=== PATIENT | female | born 1990 | race Caucasian/White ===

== ENCOUNTER 2021-08-15 07:37 | Emergency (ER) | payer OTHER ==
[~2021-08-15] VITALS: Ht 165.1 cm; Wt 77.3 kg
[2021-08-15] MEDS ORDERED: IBUP80TA PO (07:46)
[2021-08-15] MEDS ORDERED: ACET-683 PO (07:46)
[2021-08-15] MEDS ORDERED: WELLTAB38 PO (07:46)
[2021-08-15] MEDS ORDERED: NS 1,000 ML IV ONE (08:25)
[2021-08-15] MEDS ORDERED: KETOROLAC 30 MG/ML 1ML VIAL IV ONE (08:25)
[2021-08-15 08:59] LABS: BASO % 0.8 % (0.0-1.0); EOS # 0.2 10^3/uL (0.0-0.5); EOS % 3.4 % (0.0-3.0); HEMATOCRIT 38.7 % (36.0-47.0); LYMPH # 1.8 10^3/uL (1.5-5.0); LYMPH % 35.9 % (24.0-44.0); MEAN CORPUSCULAR HEMOGLOBIN 31.2 pg (27.0-33.0); MEAN CORPUSCULAR HGB CONC 33.6 g/dl (32.0-36.5); MEAN CORPUSCULAR VOLUME 92.8 fl (80.0-96.0); MONO # 0.4 10^3/uL (0.0-0.8); MONO % 7.1 % (2.0-8.0); NEUTROPHILS # 2.6 10^3/uL (1.5-8.5); NEUTROPHILS % 52.2 % (36.0-66.0); PLATELET COUNT, AUTOMATED 299 10^3/uL (150-450); RED BLOOD COUNT 4.17 10^6/uL (4.00-5.40); WHITE BLOOD COUNT 4.9 10^3/uL (4.0-10.0)
[2021-08-15] MEDS ORDERED: METOCLOPRAMIDE INJ 10MG/2ML VIAL (J2765 PER 1) IV ONE (09:15)
[2021-08-15] MEDS ORDERED: diphenhydrAMINE 25MG CAP PO ONE (09:15)
[2021-08-15 09:30] VITALS: BP 136/86
[2021-08-15 09:37] LABS: BLOOD UREA NITROGEN 8 MG/DL (7-18); CALCIUM LEVEL 8.8 MG/DL (8.5-10.1); CARBON DIOXIDE LEVEL 28 MEQ/L (21-32); CHLORIDE LEVEL 109 MEQ/L (98-107); CREATININE FOR GFR 0.64 MG/DL (0.55-1.30); GLOMERULAR FILTRATION RATE > 60.0 (>60); GLUCOSE, FASTING 96 MG/DL (70-100); POTASSIUM SERUM 4.2 MEQ/L (3.5-5.1); SODIUM LEVEL 142 MEQ/L (136-145)
[2021-08-15 09:39] LABS: RSV AMPLIFICATION NEGATIVE (NEGATIVE)
== END 2021-08-15 10:09 | disposition home or self-care (01) ==
LOC: M ED 07:37
DX: G89.29 Other chronic pain (principal); M79.7 Fibromyalgia; F43.10 Post-traumatic stress disorder, unspecified; F17.290 Nicotine dependence, other tobacco product, uncomplicated; F12.10 Cannabis abuse, uncomplicated
CPT/HCPCS: 80048; 82550; 85025; 87631; 96361; 96374; 96375; 99284; J1885; J2765

== ENCOUNTER 2022-01-07 13:03 | Emergency (ER) | payer OTHER ==
[~2022-01-07] VITALS: Ht 165.1 cm; Wt 84.1 kg
[~2022-01-07 13:03] MED LIST: ACET-683 PO; IBUP80TA PO; WELLTAB38 PO
[2022-01-07] MEDS ORDERED: BUSP10TA (13:22)
[2022-01-07] MEDS ORDERED: MIRT-10 (13:22)
[2022-01-07] MEDS ORDERED: KETOROLAC 30 MG/ML 1ML VIAL IV ONE (14:25)
[2022-01-07] MEDS ORDERED: NS 1,000 ML IV ONE (14:25)
[2022-01-07] MEDS ORDERED: ONDANSETRON 4MG 2ML VIAL IV ONE (14:25)
[2022-01-07 15:20] LABS: BASO % 0.5 % (0.0-1.0); EOS # 0.1 10^3/uL (0.0-0.5); EOS % 2.1 % (0.0-3.0); HEMATOCRIT 39.6 % (36.0-47.0); HEMOGLOBIN 13.3 g/dl (12.0-15.5); LYMPH # 2.4 10^3/uL (1.5-5.0); LYMPH % 37.3 % (24.0-44.0); MEAN CORPUSCULAR HEMOGLOBIN 30.3 pg (27.0-33.0); MEAN CORPUSCULAR HGB CONC 33.6 g/dl (32.0-36.5); MEAN CORPUSCULAR VOLUME 90.2 fl (80.0-96.0); MONO # 0.4 10^3/uL (0.0-0.8); MONO % 6.3 % (2.0-8.0); NEUTROPHILS # 3.4 10^3/uL (1.5-8.5); NEUTROPHILS % 53.3 % (36.0-66.0); PLATELET COUNT, AUTOMATED 289 10^3/uL (150-450); RED BLOOD COUNT 4.39 10^6/uL (4.00-5.40); WHITE BLOOD COUNT 6.3 10^3/uL (4.0-10.0)
[2022-01-07 15:33] LABS: INR 0.86; PROTHROMBIN TIME 12.1 SECONDS (12.7-14.5)
[2022-01-07 15:55] LABS: ALBUMIN 4.1 GM/DL (3.2-5.2); ALT/SGPT 53 U/L (12-78); BILIRUBIN,DIRECT < 0.1 MG/DL (0.0-0.2); BILIRUBIN,TOTAL 0.2 MG/DL (0.2-1.0); TOTAL PROTEIN 7.2 GM/DL (6.4-8.2)
[2022-01-07] MEDS ORDERED: NORCO, ANEXSIA 5/325MG TABLET (HYDROcodone/ACETAMINOPHEN) PO ONE (16:15)
[2022-01-07 16:19] LABS: BACTERIA, URINE NONE SEEN; HYALINE CAST, URINE NONE SEEN /lpf (0-1); RBC, URINE 30-40 /hpf (0-3); SQUAMOUS EPITHELIAL CELL URINE NONE SEEN /hpf (SMALL AMT)
[2022-01-07 16:27] LABS: AMPHETAMINES LEVEL URINE NEGATIVE (NEGATIVE); BARBITURATES URINE NEGATIVE (NEGATIVE); BENZODIAZEPINES URINE POSITIVE (NEGATIVE); CANNABINOIDS URINE POSITIVE (NEGATIVE); COCAINE METABOLITE URINE NEGATIVE (NEGATIVE); METHADONE URINE NEGATIVE (NEGATIVE); OPIATES URINE NEGATIVE (NEGATIVE); PHENCYCLIDINE URINE NEGATIVE (NEGATIVE)
[2022-01-07] MEDS ORDERED: KETO10TAB PO (16:51)
[2022-01-07 17:01] VITALS: BP 153/96
== END 2022-01-07 17:04 | disposition home or self-care (01) ==
LOC: M ED 13:03
DX: N80.0 Endometriosis of uterus (principal); R42 Dizziness and giddiness; R11.2 Nausea with vomiting, unspecified; M79.7 Fibromyalgia; F32.A Depression, unspecified; Z90.89 Acquired absence of other organs; F17.290 Nicotine dependence, other tobacco product, uncomplicated; Z88.5 Allergy status to narcotic agent; Z79.899 Other long term (current) drug therapy
CPT/HCPCS: 76830; 76856; 80047; 80076; 80307; 81000; 81015; 84702; 85025; 85610; 85730; 93976; 96361; 96374; 96375; 99284; J1885; J2405

== ENCOUNTER 2022-01-25 08:34 | Emergency (ER) | payer OTHER ==
[~2022-01-25] VITALS: Ht 165.1 cm; Wt 79.5 kg
[~2022-01-25 08:34] MED LIST changes: +BUSP10TA; +KETO10TAB PO; +MIRT-10
[2022-01-25] MEDS ORDERED: NS 1,000 ML IV ONE (11:50)
[2022-01-25] MEDS ORDERED: KETOROLAC 30 MG/ML 1ML VIAL IV ONE (11:50)
[2022-01-25 12:10] LABS: BASO % 0.3 % (0.0-1.0); EOS # 0.1 10^3/uL (0.0-0.5); HEMATOCRIT 41.7 % (36.0-47.0); HEMOGLOBIN 13.8 g/dl (12.0-15.5); LYMPH # 2.3 10^3/uL (1.5-5.0); LYMPH % 18.6 % (24.0-44.0); MEAN CORPUSCULAR HEMOGLOBIN 29.6 pg (27.0-33.0); MEAN CORPUSCULAR HGB CONC 33.1 g/dl (32.0-36.5); MEAN CORPUSCULAR VOLUME 89.3 fl (80.0-96.0); MONO # 0.6 10^3/uL (0.0-0.8); MONO % 4.5 % (2.0-8.0); NEUTROPHILS # 9.4 10^3/uL (1.5-8.5); NEUTROPHILS % 75.3 % (36.0-66.0); PLATELET COUNT, AUTOMATED 303 10^3/uL (150-450); RED BLOOD COUNT 4.67 10^6/uL (4.00-5.40); WHITE BLOOD COUNT 12.5 10^3/uL (4.0-10.0)
[2022-01-25 12:31] LABS: ERYTHROCYTE SEDIMENTATION RATE 7 mm/hr (0-20)
[2022-01-25] MEDS ORDERED: ISOVUE-370 76% 100ML VIAL As Ordered ONE (12:31)
[2022-01-25] MEDS ORDERED: MORPHINE 4 MG/ML 1ML VIAL/SYRINGE IV ONE (13:00)
[2022-01-25 13:03] LABS: ALBUMIN 4.2 GM/DL (3.2-5.2); ALT/SGPT 85 U/L (12-78); BILIRUBIN,DIRECT 0.1 MG/DL (0.0-0.2); BILIRUBIN,TOTAL 0.4 MG/DL (0.2-1.0); BLOOD UREA NITROGEN 9 MG/DL (7-18); CALCIUM LEVEL 9.6 MG/DL (8.5-10.1); CARBON DIOXIDE LEVEL 26 MEQ/L (21-32); CHLORIDE LEVEL 108 MEQ/L (98-107); CREATININE FOR GFR 0.68 MG/DL (0.55-1.30); GLOMERULAR FILTRATION RATE > 60.0 (>60); GLUCOSE, FASTING 102 MG/DL (70-100); LIPASE 90 U/L (73-393); POTASSIUM SERUM 4.2 MEQ/L (3.5-5.1); SODIUM LEVEL 139 MEQ/L (136-145); TOTAL PROTEIN 7.2 GM/DL (6.4-8.2)
[2022-01-25 13:08] LABS: AMPHETAMINES LEVEL URINE NEGATIVE (NEGATIVE); BARBITURATES URINE NEGATIVE (NEGATIVE); BENZODIAZEPINES URINE NEGATIVE (NEGATIVE); CANNABINOIDS URINE POSITIVE (NEGATIVE); COCAINE METABOLITE URINE NEGATIVE (NEGATIVE); METHADONE URINE NEGATIVE (NEGATIVE); OPIATES URINE NEGATIVE (NEGATIVE); PHENCYCLIDINE URINE NEGATIVE (NEGATIVE)
[2022-01-25 14:41] VITALS: BP 142/84
[2022-01-25 17:32] LABS: GC DNA AMPLIFICATION NEGATIVE (NEGATIVE)
== END 2022-01-25 14:46 | disposition home or self-care (01) ==
LOC: M ED 08:34
DX: D25.9 Leiomyoma of uterus, unspecified (principal); N80.9 Endometriosis, unspecified; M79.7 Fibromyalgia; Z79.899 Other long term (current) drug therapy; Z88.8 Allergy status to other drugs, medicaments and biological substances
CPT/HCPCS: 74177; 76830; 76856; 80047; 80048; 80076; 80307; 81000; 81015; 83690; 84702; 85025; 85652; 86140; 87661; 87810; 87850; 93041; 93976; 96361; 96374; 96375; 99284; J1885; J2270; Q9967

== ENCOUNTER 2022-02-19 13:23 | Emergency (ER) | payer OTHER ==
[~2022-02-19] VITALS: Ht 165.1 cm; Wt 81.6 kg
[2022-02-19] MEDS ORDERED: OXYC1TAB23 (13:30)
[2022-02-19] MEDS ORDERED: DICY20TA20 (13:30)
[2022-02-19] MEDS ORDERED: FLUO20CA22 (13:30)
[2022-02-19] MEDS ORDERED: PROM25TA12 (13:30)
[2022-02-19 14:09] LABS: BASO # 0.1 10^3/uL (0.0-0.2); BASO % 0.7 % (0.0-1.0); EOS % 0.5 % (0.0-3.0); LYMPH # 2.6 10^3/uL (1.5-5.0); LYMPH % 35.2 % (24.0-44.0); MEAN CORPUSCULAR HGB CONC 34.1 g/dl (32.0-36.5); MONO # 0.6 10^3/uL (0.0-0.8); MONO % 7.8 % (2.0-8.0); NEUTROPHILS # 4.1 10^3/uL (1.5-8.5); NEUTROPHILS % 55.7 % (36.0-66.0); PLATELET COUNT, AUTOMATED 278 10^3/uL (150-450); RED BLOOD COUNT 4.66 10^6/uL (4.00-5.40); WHITE BLOOD COUNT 7.4 10^3/uL (4.0-10.0)
[2022-02-19 15:08] LABS: HCG, SERUM QUALITATIVE NEGATIVE (NEGATIVE)
[2022-02-19 15:18] LABS: ALBUMIN 4.6 GM/DL (3.2-5.2); ALT/SGPT 686 U/L (12-78); BILIRUBIN,DIRECT 0.2 MG/DL (0.0-0.2); BILIRUBIN,TOTAL 0.5 MG/DL (0.2-1.0); BLOOD UREA NITROGEN 5 MG/DL (7-18); CALCIUM LEVEL 9.5 MG/DL (8.5-10.1); CARBON DIOXIDE LEVEL 25 MEQ/L (21-32); CHLORIDE LEVEL 108 MEQ/L (98-107); CREATININE FOR GFR 0.78 MG/DL (0.55-1.30); GLOMERULAR FILTRATION RATE > 60.0 (>60); GLUCOSE, FASTING 115 MG/DL (70-100); LIPASE 66 U/L (73-393); POTASSIUM SERUM 4.1 MEQ/L (3.5-5.1); SODIUM LEVEL 138 MEQ/L (136-145); TOTAL PROTEIN 7.8 GM/DL (6.4-8.2)
[2022-02-19] MEDS ORDERED: MORPHINE 4 MG/ML 1ML VIAL/SYRINGE IV ONE (17:35)
[2022-02-19] MEDS ORDERED: NS 1,000 ML IV ONE (19:15)
[2022-02-19] MEDS ORDERED: CAPSAICIN 0.025% CR 60 GM TOP ONE (19:30)
[2022-02-19] MEDS ORDERED: KETOROLAC 30 MG/ML 1ML VIAL IV ONE (19:30)
[2022-02-19] MEDS ORDERED: HALOPERIDOL 5MG/ML VIAL (J1630 PER 1) IV ONE (19:50)
[2022-02-19 19:59] LABS: HEPATITIS B CORE ANTIBODY IGM NEGATIVE (NEGATIVE); HEPATITIS B SURFACE ANTIGEN NEGATIVE (NEGATIVE); HEPATITIS C VIRUS ABY INDEX < 0.0 INDEX (<0.8)
[2022-02-19 20:02] VITALS: BP 142/86
== END 2022-02-19 20:26 | disposition left against medical advice (07) ==
LOC: M ED 13:23
DX: A08.11 Acute gastroenteropathy due to Norwalk agent (principal); Z53.9 Procedure and treatment not carried out, unspecified reason; M79.7 Fibromyalgia; F32.9 Major depressive disorder, single episode, unspecified; N80.9 Endometriosis, unspecified; Z88.5 Allergy status to narcotic agent
CPT/HCPCS: 76705; 80048; 80076; 81002; 83690; 84703; 85025; 86705; 86709; 86803; 87340; 87507; 96361; 96374; 96375; 99283; J1630; J1885; J2270

== ENCOUNTER 2022-03-23 08:27 | Day surgery (SDC) | payer OTHER ==
[~2022-03-23] VITALS: Ht 165.1 cm; Wt 77.2 kg
[~2022-03-23 08:27] MED LIST changes: +DICY20TA20; +FLUO20CA22 PO; +KETOROLAC 60MG 2ML VIAL As Ordered ONE; +LIDOCAINE 2% 100MG/5ML SDV (FOR ANES.) As Ordered ONE; +MIDAZOLAM INJ 2MG/2ML VIAL (J2250 PER 1MG) As Ordered ONE; +ONDANSETRON 4MG 2ML VIAL As Ordered ONE; +OXYC-517 PO; +OXYC1TAB23; +PROM25TA12 PO; +ROCURONIUM BROMIDE 50 MG/5 ML VIAL As Ordered ONE; +SUGAMMADEX SODIUM 500 MG/5 ML VIAL (BRIDION) As Ordered ONE; +VENTAER INH; +dexameTHASONE 4 MG/ML 1ML VIAL (J1100 PER 1MG) As Ordered ONE; +fentaNYL 100 MCG/2 ML INJECTION As Ordered ONE; +propofoL 200 MG/20 ML VIAL As Ordered ONE
[2022-03-23 09:08] LABS: HEMATOCRIT 41.3 % (36.0-47.0); HEMOGLOBIN 13.7 g/dl (12.0-15.5); MEAN CORPUSCULAR HGB CONC 33.2 g/dl (32.0-36.5); MEAN CORPUSCULAR VOLUME 90.4 fl (80.0-96.0); PLATELET COUNT, AUTOMATED 216 10^3/uL (150-450); RED BLOOD COUNT 4.57 10^6/uL (4.00-5.40); WHITE BLOOD COUNT 5.8 10^3/uL (4.0-10.0)
[2022-03-23] MEDS ORDERED: METOCLOPRAMIDE INJ 10MG/2ML VIAL (J2765 PER 1) As Ordered ONE (09:10)
[2022-03-23] MEDS ORDERED: LR 1,000 ML IV SCH ×2 (09:20→11:30)
[2022-03-23] MEDS ORDERED: SCOPOLAMINE 1MG TRANSDERMAL PATCH TOP ONE (09:30)
[2022-03-23 09:32] LABS: HCG, SERUM QUALITATIVE NEGATIVE (NEGATIVE)
[2022-03-23 09:47] LABS: ALBUMIN 4.3 GM/DL (3.2-5.2); ALT/SGPT 399 U/L (12-78); BILIRUBIN,TOTAL 0.8 MG/DL (0.2-1.0); BLOOD UREA NITROGEN 5 MG/DL (7-18); CALCIUM LEVEL 9.5 MG/DL (8.5-10.1); CARBON DIOXIDE LEVEL 25 MEQ/L (21-32); CHLORIDE LEVEL 108 MEQ/L (98-107); CREATININE FOR GFR 0.66 MG/DL (0.55-1.30); GLOMERULAR FILTRATION RATE > 60.0 (>60); GLUCOSE, FASTING 101 MG/DL (70-100); POTASSIUM SERUM 4.2 MEQ/L (3.5-5.1); SODIUM LEVEL 140 MEQ/L (136-145); TOTAL PROTEIN 7.2 GM/DL (6.4-8.2)
[2022-03-23] MEDS ORDERED: MORPHINE 2 MG/ML 1ML VIAL IV ONE (09:50)
[2022-03-23] MEDS ORDERED: BUPIVACAINE HCL 0.25% 30ML VIAL As Ordered ONE (09:53)
[2022-03-23] MEDS ORDERED: propofoL 200 MG/20 ML VIAL As Ordered ONE (10:37)
[2022-03-23] MEDS ORDERED: HYDROmorphone HCL 2MG/ML 1ML VIAL As Ordered ONE (11:00)
[2022-03-23] MEDS ORDERED: ONDANSETRON 4MG 2ML VIAL IV PRN (11:30)
[2022-03-23] MEDS: fentaNYL 100 MCG/2 ML INJECTION IV PRN ×4 (11:44→11:59)
[2022-03-23] MEDS: oxyCODONE 5MG TAB PO PRN ×2 (11:44→12:12)
[2022-03-23] MEDS: MORPHINE 2 MG/ML 1ML VIAL IV PRN ×2 (12:07→12:12)
[2022-03-23 13:08] VITALS: BP 121/76
[2022-03-23] MEDS ORDERED: KETOROLAC 30 MG/ML 1ML VIAL IV ONE (13:45)
== END 2022-03-23 13:12 | disposition home or self-care (01) ==
LOC: M SDC 08:27
PROVIDERS: ATTEND Obstetrics & Gynecology
DX: R10.2 Pelvic and perineal pain (principal); N80.9 Endometriosis, unspecified; I10 Essential (primary) hypertension; F43.10 Post-traumatic stress disorder, unspecified; J45.909 Unspecified asthma, uncomplicated; Z79.899 Other long term (current) drug therapy; G43.909 Migraine, unspecified, not intractable, without status migrainosus; F32.A Depression, unspecified; Z91.013 Allergy to seafood; Z88.5 Allergy status to narcotic agent; Z79.51 Long term (current) use of inhaled steroids
CPT/HCPCS: 36415; 49320; 57410; 80053; 84703; 85027; 86850; 86900; 86901; 87624; G0123; J1100; J1170; J1885; J2250; J2270; J2405; J2765; J3010

== ENCOUNTER → 2022-04-26 | Outpatient (CLI) | payer OTHER ==
[~2022-04-26] MED LIST changes: -KETOROLAC 60MG 2ML VIAL As Ordered ONE; -LIDOCAINE 2% 100MG/5ML SDV (FOR ANES.) As Ordered ONE; -MIDAZOLAM INJ 2MG/2ML VIAL (J2250 PER 1MG) As Ordered ONE; -ONDANSETRON 4MG 2ML VIAL As Ordered ONE; -ROCURONIUM BROMIDE 50 MG/5 ML VIAL As Ordered ONE; -SUGAMMADEX SODIUM 500 MG/5 ML VIAL (BRIDION) As Ordered ONE; -dexameTHASONE 4 MG/ML 1ML VIAL (J1100 PER 1MG) As Ordered ONE; -fentaNYL 100 MCG/2 ML INJECTION As Ordered ONE; -propofoL 200 MG/20 ML VIAL As Ordered ONE
== END ==
LOC: M RAD 15:38
PROVIDERS: ATTEND Physician Assistant
DX: H92.11 Otorrhea, right ear (principal); J32.0 Chronic maxillary sinusitis

== ENCOUNTER 2022-05-22 11:08 | Emergency (ER) | payer OTHER ==
[~2022-05-22] VITALS: Ht 165.1 cm; Wt 70.9 kg
[2022-05-22 11:54] LABS: BASO % 0.5 % (0.0-1.0); EOS # 0.1 10^3/uL (0.0-0.5); EOS % 0.8 % (0.0-3.0); HEMATOCRIT 41.5 % (36.0-47.0); HEMOGLOBIN 13.8 g/dl (12.0-15.5); LYMPH # 1.6 10^3/uL (1.5-5.0); LYMPH % 26.2 % (24.0-44.0); MEAN CORPUSCULAR HEMOGLOBIN 29.7 pg (27.0-33.0); MEAN CORPUSCULAR HGB CONC 33.3 g/dl (32.0-36.5); MEAN CORPUSCULAR VOLUME 89.4 fl (80.0-96.0); MONO # 0.3 10^3/uL (0.0-0.8); MONO % 5.6 % (2.0-8.0); NEUTROPHILS % 66.7 % (36.0-66.0); PLATELET COUNT, AUTOMATED 261 10^3/uL (150-450); RED BLOOD COUNT 4.64 10^6/uL (4.00-5.40); WHITE BLOOD COUNT 6.1 10^3/uL (4.0-10.0)
[2022-05-22 12:23] LABS: LIPASE 25 U/L (12-53)
[2022-05-22 12:25] LABS: BILIRUBIN,DIRECT 0.2 MG/DL (<0.4)
[2022-05-22 12:26] LABS: ALBUMIN 4.7 G/DL (3.2-5.2); ALKALINE PHOSPHATASE 50 U/L (46-116); ALT/SGPT 81 U/L (7.0-40); AST/SGOT 33 U/L (<34); BILIRUBIN,TOTAL 0.5 MG/DL (0.3-1.2); BLOOD UREA NITROGEN 6 MG/DL (9-23); CARBON DIOXIDE LEVEL 25 MMOL/L (20-31); CHLORIDE LEVEL 106 MMOL/L (98-107); CREATININE FOR GFR 0.55 MG/DL (0.55-1.30); GLOMERULAR FILTRATION RATE > 60.0 (>60); GLUCOSE, FASTING 91 MG/DL (60-100); POTASSIUM SERUM 4.1 MMOL/L (3.5-5.1); SODIUM LEVEL 140 MMOL/L (136-145); TOTAL PROTEIN 7.5 G/DL (5.7-8.2)
[2022-05-22 12:34] LABS: HCG, SERUM QUALITATIVE NEGATIVE (NEGATIVE)
[2022-05-22] MEDS ORDERED: ONDANSETRON 4MG 2ML VIAL IV ONE (14:10)
[2022-05-22] MEDS: MORPHINE 4 MG/ML 1ML VIAL IV PRN ×2 (14:23→15:41)
[2022-05-22 15:16] LABS: RSV AMPLIFICATION NEGATIVE (NEGATIVE)
[2022-05-22] MEDS ORDERED: DICY20TA20 PO (15:27)
[2022-05-22] MEDS ORDERED: HOME MED LIST COMPLETE! XX SCH (15:30)
[2022-05-22] MEDS ORDERED: MORPHINE 2 MG/ML 1ML VIAL IV ONE (17:20)
[2022-05-22] MEDS ORDERED: MORPHINE 4 MG/ML 1ML VIAL IV ONE (17:20)
[2022-05-22 17:30] VITALS: BP 133/88
== END 2022-05-22 17:54 | disposition home or self-care (01) ==
LOC: M ED 11:08 → CANBEDREQ 17:13 → M ED 17:54
DX: R94.5 Abnormal results of liver function studies (principal); R19.7 Diarrhea, unspecified; R10.9 Unspecified abdominal pain; I10 Essential (primary) hypertension; M79.7 Fibromyalgia; N80.9 Endometriosis, unspecified; J45.909 Unspecified asthma, uncomplicated; F32.9 Major depressive disorder, single episode, unspecified; Z79.899 Other long term (current) drug therapy; Z88.6 Allergy status to analgesic agent; Z88.5 Allergy status to narcotic agent; Z91.013 Allergy to seafood
CPT/HCPCS: 80048; 80076; 81000; 81015; 83690; 84703; 85025; 87086; 87631; 96374; 96375; 96376; 99284; J2405

== ENCOUNTER 2022-05-25 08:22 | Inpatient (IN) | payer OTHER ==
[~2022-05-25] VITALS: Ht 165.1 cm; Wt 73.0 kg
[~2022-05-25 08:22] MED LIST changes: +DICY20TA20 PO
[2022-05-25] MEDS ORDERED: METOCLOPRAMIDE INJ 10MG/2ML VIAL IV ONE (12:50)
[2022-05-25] MEDS ORDERED: NS 1,000 ML IV ONE (12:50)
[2022-05-25] MEDS ORDERED: MORPHINE 4 MG/ML 1ML VIAL IV ONE ×2 (12:50→22:00)
[2022-05-25 13:46] LABS: BASO % 0.7 % (0.0-1.0); EOS # 0.1 10^3/uL (0.0-0.5); EOS % 1.1 % (0.0-3.0); HEMATOCRIT 41.1 % (36.0-47.0); HEMOGLOBIN 13.7 g/dl (12.0-15.5); LYMPH # 2.3 10^3/uL (1.5-5.0); LYMPH % 40.5 % (24.0-44.0); MEAN CORPUSCULAR HGB CONC 33.3 g/dl (32.0-36.5); MEAN CORPUSCULAR VOLUME 90.1 fl (80.0-96.0); MONO # 0.3 10^3/uL (0.0-0.8); MONO % 5.7 % (2.0-8.0); NEUTROPHILS # 2.9 10^3/uL (1.5-8.5); NEUTROPHILS % 51.8 % (36.0-66.0); PLATELET COUNT, AUTOMATED 222 10^3/uL (150-450); RED BLOOD COUNT 4.56 10^6/uL (4.00-5.40); WHITE BLOOD COUNT 5.6 10^3/uL (4.0-10.0)
[2022-05-25 14:12] LABS: ERYTHROCYTE SEDIMENTATION RATE 5 mm/hr (0-20)
[2022-05-25 14:20] LABS: ALBUMIN 4.4 G/DL (3.2-5.2); ALKALINE PHOSPHATASE 45 U/L (46-116); ALT/SGPT 38 U/L (7.0-40); AST/SGOT 18 U/L (<34); BILIRUBIN,TOTAL 0.3 MG/DL (0.3-1.2); BLOOD UREA NITROGEN 6 MG/DL (9-23); CALCIUM LEVEL 9.8 MG/DL (8.5-10.1); CARBON DIOXIDE LEVEL 26 MMOL/L (20-31); CHLORIDE LEVEL 106 MMOL/L (98-107); CREATININE FOR GFR 0.66 MG/DL (0.55-1.30); GLOMERULAR FILTRATION RATE > 60.0 (>60); GLUCOSE, FASTING 79 MG/DL (60-100); POTASSIUM SERUM 4.3 MMOL/L (3.5-5.1); SODIUM LEVEL 140 MMOL/L (136-145)
[2022-05-25] MEDS ORDERED: KETOROLAC 30 MG/ML 1ML VIAL IV ONE (14:25)
[2022-05-25 14:47] LABS: C REACTIVE PROTEIN QUANTITATIV < 0.40 MG/DL (<1.0)
[2022-05-25] MEDS ORDERED: ISOVUE-370 76% 100ML VIAL As Ordered ONE (15:05)
[2022-05-25] MEDS ORDERED: GI COCKTAIL 50ML BTL(HYOSCYAMINE/MAALOX/LIDOCAINE VISCOUS)(1:3:1) PO ONE (15:10)
[2022-05-25] MEDS: GASTROGRAFIN SOLUTION 30ML PO SCH ×2 (15:25→15:50)
[2022-05-25 15:53] LABS: LIPASE 26 U/L (12-53)
[2022-05-25] MEDS ORDERED: DICYCLOMINE 10 MG CAP PO ONE (16:55)
[2022-05-25] MEDS ORDERED: ACETAMINOPHEN 1000MG 100ML IV BAG IV ONE (17:15)
[2022-05-25] MEDS ORDERED: oxyCODONE 5MG TAB PO ONE (18:15)
[2022-05-25] MEDS ORDERED: ONDANSETRON 4MG 2ML VIAL IV PRN (19:35)
[2022-05-25] MEDS ORDERED: MELATAB3 PO (19:50)
[2022-05-25] MEDS ORDERED: HOME MED LIST COMPLETE! XX SCH (19:50)
[2022-05-25 19:57] LABS: RSV AMPLIFICATION NEGATIVE (NEGATIVE)
[2022-05-25] MEDS: NS 1,000 ML IV SCH (19:58)
[2022-05-25] MEDS ORDERED: RAMELTEON 8 MG TAB (ROZEREM) PO PRN (23:45)
[2022-05-25] MEDS ORDERED: ALBUTEROL 90 MCG/ACT 8GM HFA INHALER INH PRN (23:45)
[2022-05-26 02:00] VITALS: BP 119/70
[2022-05-26] MEDS: oxyCODONE 5MG TAB PO PRN ×3 (02:37→19:44)
[2022-05-26] MEDS: NS 1,000 ML IV SCH ×3 (05:23→22:36)
[2022-05-26 06:00] VITALS: BP 124/70
[2022-05-26] MEDS: DICYCLOMINE 10 MG CAP PO PRN ×3 (07:45→22:52)
[2022-05-26 08:01] LABS: HEMATOCRIT 37.9 % (36.0-47.0); HEMOGLOBIN 12.4 g/dl (12.0-15.5); MEAN CORPUSCULAR HEMOGLOBIN 29.6 pg (27.0-33.0); MEAN CORPUSCULAR HGB CONC 32.7 g/dl (32.0-36.5); MEAN CORPUSCULAR VOLUME 90.5 fl (80.0-96.0); PLATELET COUNT, AUTOMATED 205 10^3/uL (150-450); RED BLOOD COUNT 4.19 10^6/uL (4.00-5.40)
[2022-05-26 08:34] LABS: MAGNESIUM LEVEL 1.8 MG/DL (1.8-2.4)
[2022-05-26 08:37] LABS: ALBUMIN 3.6 G/DL (3.2-5.2); ALKALINE PHOSPHATASE 39 U/L (46-116); ALT/SGPT 21 U/L (7.0-40); AST/SGOT 16 U/L (<34); BILIRUBIN,TOTAL 0.4 MG/DL (0.3-1.2); BLOOD UREA NITROGEN < 5 MG/DL (9-23); CALCIUM LEVEL 8.3 MG/DL (8.5-10.1); CARBON DIOXIDE LEVEL 25 MMOL/L (20-31); CHLORIDE LEVEL 107 MMOL/L (98-107); CREATININE FOR GFR 0.58 MG/DL (0.55-1.30); GLOMERULAR FILTRATION RATE > 60.0 (>60); GLUCOSE, FASTING 86 MG/DL (60-100); POTASSIUM SERUM 4.1 MMOL/L (3.5-5.1); SODIUM LEVEL 139 MMOL/L (136-145); TOTAL PROTEIN 5.8 G/DL (5.7-8.2)
[2022-05-26] MEDS: ENOXAPARIN 40MG/0.4ML SYRINGE (J1650 PER 10MG) SC SCH (09:00)
[2022-05-26] MEDS ORDERED: PANTOPRAZOLE 40MG TAB (PROTONIX) PO SCH (09:00)
[2022-05-26] MEDS: FLUoxetine 20MG CAP PO SCH (09:00)
[2022-05-26] MEDS ORDERED: MORPHINE 4 MG/ML 1ML VIAL IV ONE (09:15)
[2022-05-26] MEDS: SUCRALFATE 1 GM TAB PO SCH ×4 (10:05→21:00)
[2022-05-26] MEDS: PANTOPRAZOLE 40MG VIAL IV SCH ×2 (10:59→21:14)
[2022-05-26] MEDS: MORPHINE 4 MG/ML 1ML VIAL IV PRN ×2 (16:08→20:24)
[2022-05-26] MEDS ORDERED: MIRALAX *UNIT DOSE* 17GM PACKET PO ONE (16:25)
[2022-05-26] MEDS ORDERED: BISACODYL 5MG TAB PO ONE (16:25)
[2022-05-26] MEDS ORDERED: MOM 30ML SUSPENSION UDC PO ONE (16:25)
[2022-05-26] MEDS: DOCUSATE SODIUM 100MG CAPSULE PO SCH ×2 (17:25→21:00)
[2022-05-26] MEDS: SENNA 8.6 MG TAB (SENOKOT) PO SCH ×2 (17:25→21:00)
[2022-05-26 22:23] VITALS: BP 124/71
[2022-05-27] MEDS: MORPHINE 4 MG/ML 1ML VIAL IV PRN ×4 (00:26→16:10)
[2022-05-27] MEDS: oxyCODONE 5MG TAB PO PRN ×3 (02:00→15:26)
[2022-05-27] MEDS ORDERED: MORPHINE 4 MG/ML 1ML VIAL IV ONE ×2 (04:00→09:50)
[2022-05-27 05:44] VITALS: BP 108/52
[2022-05-27] MEDS: PANTOPRAZOLE 40MG VIAL IV SCH (07:57)
[2022-05-27] MEDS: DOCUSATE SODIUM 100MG CAPSULE PO SCH (07:58)
[2022-05-27] MEDS: FLUoxetine 20MG CAP PO SCH (07:58)
[2022-05-27] MEDS: SUCRALFATE 1 GM TAB PO SCH ×2 (07:58→13:00)
[2022-05-27] MEDS: ENOXAPARIN 40MG/0.4ML SYRINGE (J1650 PER 10MG) SC SCH (07:59)
[2022-05-27] MEDS: SENNA 8.6 MG TAB (SENOKOT) PO SCH (07:59)
[2022-05-27] MEDS ORDERED: MOM 30ML SUSPENSION UDC PO ONE (08:00)
[2022-05-27] MEDS ORDERED: BISACODYL 5MG TAB PO ONE (08:00)
[2022-05-27] MEDS ORDERED: FLEET ENEMA PR ONE (11:30)
[2022-05-27] MEDS ORDERED: INFLUENZA QUADRIVALENT PF VACCINE 0.5ML SYRINGE IM.IMMUN ONE (12:00)
[2022-05-27] MEDS: NS 1,000 ML IV SCH (12:05)
[2022-05-27] MEDS ORDERED: LIDOCAINE 2% 100MG/5ML SDV (FOR ANES.) As Ordered ONE (14:16)
[2022-05-27] MEDS ORDERED: propofoL 200 MG/20 ML VIAL As Ordered ONE (14:16)
[2022-05-27] MEDS ORDERED: KETAMINE HCL 200MG/20ML VIAL As Ordered ONE (15:00)
[2022-05-27 15:15] VITALS: BP 113/69
[2022-05-27] MEDS ORDERED: MORPHINE 2 MG/ML 1ML VIAL IV ONE (16:35)
[2022-05-27] MEDS ORDERED: PANT40TA29 PO (16:51)
[2022-05-27] MEDS ORDERED: ONDA-83 PO (16:51)
[2022-05-27] MEDS ORDERED: CARA1TAB6 PO (16:51)
== END 2022-05-27 17:30 | disposition home or self-care (01) | DRG 392 ==
LOC: M ED 08:22 → M ED INP 17:34 → M MSPAV 05-26 22:25
PROVIDERS: ADMIT Internal Medicine; ATTEND Internal Medicine
PROC: 0DB98ZX Excision of Duodenum, Via Natural or Artificial Opening Endoscopic, Diagnostic (ICD-10-PCS; 2022-05-27)
PROC: 0DBH8ZX Excision of Cecum, Via Natural or Artificial Opening Endoscopic, Diagnostic (ICD-10-PCS; 2022-05-27)
PROC: 0DBK8ZX Excision of Ascending Colon, Via Natural or Artificial Opening Endoscopic, Diagnostic (ICD-10-PCS; 2022-05-27)
PROC: 0DBL8ZX Excision of Transverse Colon, Via Natural or Artificial Opening Endoscopic, Diagnostic (ICD-10-PCS; 2022-05-27)
PROC: 0DBN8ZX Excision of Sigmoid Colon, Via Natural or Artificial Opening Endoscopic, Diagnostic (ICD-10-PCS; 2022-05-27)
PROC: 0DBM8ZX Excision of Descending Colon, Via Natural or Artificial Opening Endoscopic, Diagnostic (ICD-10-PCS; 2022-05-27)
PROC: 0DB78ZX Excision of Stomach, Pylorus, Via Natural or Artificial Opening Endoscopic, Diagnostic (ICD-10-PCS; principal; 2022-05-27 14:40)
DX: K29.60 Other gastritis without bleeding (principal); I77.4 Celiac artery compression syndrome; I10 Essential (primary) hypertension; G43.909 Migraine, unspecified, not intractable, without status migrainosus; F43.10 Post-traumatic stress disorder, unspecified; F32.A Depression, unspecified; J45.909 Unspecified asthma, uncomplicated; N80.9 Endometriosis, unspecified; Z90.49 Acquired absence of other specified parts of digestive tract; Z20.822 Contact with and (suspected) exposure to COVID-19; Z79.899 Other long term (current) drug therapy; Z88.6 Allergy status to analgesic agent; Z88.8 Allergy status to other drugs, medicaments and biological substances; Z91.013 Allergy to seafood

== ENCOUNTER 2022-08-06 19:25 | Emergency (ER) | payer OTHER ==
[~2022-08-06] VITALS: Ht 165.1 cm; Wt 68.3 kg
[~2022-08-06 19:25] MED LIST changes: +CARA1TAB6 PO; +MELATAB3 PO; +ONDA-83 PO; +PANT40TA29 PO
[2022-08-06] MEDS ORDERED: ONDANSETRON 4MG 2ML VIAL IV ONE (20:20)
[2022-08-06] MEDS ORDERED: MORPHINE 4 MG/ML 1ML VIAL IV ONE (20:20)
[2022-08-06 20:47] LABS: BASO % 0.4 % (0.0-1.0); EOS # 0.1 10^3/uL (0.0-0.5); EOS % 1.7 % (0.0-3.0); HEMATOCRIT 36.9 % (36.0-47.0); HEMOGLOBIN 12.3 g/dl (12.0-15.5); LYMPH # 2.4 10^3/uL (1.5-5.0); LYMPH % 29.9 % (24.0-44.0); MEAN CORPUSCULAR HEMOGLOBIN 29.9 pg (27.0-33.0); MEAN CORPUSCULAR HGB CONC 33.3 g/dl (32.0-36.5); MEAN CORPUSCULAR VOLUME 89.6 fl (80.0-96.0); MONO # 0.7 10^3/uL (0.0-0.8); NEUTROPHILS # 4.7 10^3/uL (1.5-8.5); NEUTROPHILS % 58.8 % (36.0-66.0); PLATELET COUNT, AUTOMATED 168 10^3/uL (150-450); RED BLOOD COUNT 4.12 10^6/uL (4.00-5.40)
[2022-08-06 21:27] LABS: LIPASE 22 U/L (12-53)
[2022-08-06 21:29] LABS: ALBUMIN 3.4 G/DL (3.2-5.2); ALKALINE PHOSPHATASE 54 U/L (46-116); ALT/SGPT 15 U/L (7.0-40); AST/SGOT < 8 U/L (<34); BILIRUBIN,DIRECT 0.1 MG/DL (<0.4); BILIRUBIN,TOTAL 0.3 MG/DL (0.3-1.2); TOTAL PROTEIN 6.1 G/DL (5.7-8.2)
[2022-08-06] MEDS: MORPHINE 4 MG/ML 1ML VIAL IV PRN ×2 (21:40→22:40)
[2022-08-06 23:11] VITALS: BP 100/54
== END 2022-08-06 23:55 | disposition home or self-care (01) ==
LOC: M ED 19:25
DX: R10.9 Unspecified abdominal pain (principal); I10 Essential (primary) hypertension; N80.9 Endometriosis, unspecified; M79.7 Fibromyalgia; J45.909 Unspecified asthma, uncomplicated; Z88.6 Allergy status to analgesic agent; F41.9 Anxiety disorder, unspecified; F32.A Depression, unspecified; Z79.891 Long term (current) use of opiate analgesic; Z79.899 Other long term (current) drug therapy
CPT/HCPCS: 80047; 80076; 81001; 83690; 84702; 85025; 96374; 96375; 96376; 99284; J2270; J2405

== ENCOUNTER 2022-08-09 11:18 | Emergency (ER) | payer OTHER ==
[~2022-08-09] VITALS: Ht 165.1 cm; Wt 66.9 kg
[2022-08-09 11:19] VITALS: BP 133/79
[2022-08-09 15:18] LABS: BASO % 0.6 % (0.0-1.0); EOS # 0.1 10^3/uL (0.0-0.5); EOS % 1.3 % (0.0-3.0); HEMATOCRIT 40.7 % (36.0-47.0); HEMOGLOBIN 13.3 g/dl (12.0-15.5); LYMPH # 1.6 10^3/uL (1.5-5.0); LYMPH % 29.8 % (24.0-44.0); MEAN CORPUSCULAR HEMOGLOBIN 29.4 pg (27.0-33.0); MEAN CORPUSCULAR HGB CONC 32.7 g/dl (32.0-36.5); MONO # 0.5 10^3/uL (0.0-0.8); MONO % 8.8 % (2.0-8.0); NEUTROPHILS # 3.1 10^3/uL (1.5-8.5); NEUTROPHILS % 59.1 % (36.0-66.0); PLATELET COUNT, AUTOMATED 161 10^3/uL (150-450); RED BLOOD COUNT 4.52 10^6/uL (4.00-5.40); WHITE BLOOD COUNT 5.2 10^3/uL (4.0-10.0)
[2022-08-09 15:28] LABS: URINE PREG TEST NEGATIVE (NEGATIVE)
[2022-08-09] MEDS ORDERED: HYDROMORPHONE HCL 0.5 MG/ 0.5 ML SYRINGE IV ONE ×2 (15:45→17:00)
[2022-08-09] MEDS ORDERED: ONDANSETRON 4MG 2ML VIAL IV ONE (15:45)
[2022-08-09 16:40] LABS: LIPASE 17 U/L (12-53)
[2022-08-09 16:41] LABS: AMYLASE 35 U/L (30-118)
[2022-08-09 16:50] LABS: ALBUMIN 3.5 G/DL (3.2-5.2); ALKALINE PHOSPHATASE 59 U/L (46-116); ALT/SGPT 11 U/L (7.0-40); AST/SGOT 11 U/L (<34); BILIRUBIN,DIRECT 0.1 MG/DL (<0.4); BILIRUBIN,TOTAL 0.4 MG/DL (0.3-1.2); BLOOD UREA NITROGEN 7 MG/DL (9-23); CALCIUM LEVEL 8.7 MG/DL (8.5-10.1); CARBON DIOXIDE LEVEL 25 MMOL/L (20-31); CHLORIDE LEVEL 106 MMOL/L (98-107); CREATININE FOR GFR 0.56 MG/DL (0.55-1.30); GLOMERULAR FILTRATION RATE > 60.0 (>60); GLUCOSE, FASTING 79 MG/DL (60-100); SODIUM LEVEL 138 MMOL/L (136-145); TOTAL PROTEIN 6.5 G/DL (5.7-8.2)
== END 2022-08-09 17:14 | disposition home or self-care (01) ==
LOC: M ED 11:18
DX: I77.4 Celiac artery compression syndrome (principal); R52 Pain, unspecified; Z79.899 Other long term (current) drug therapy; Z88.6 Allergy status to analgesic agent; Z88.5 Allergy status to narcotic agent; Z91.013 Allergy to seafood
CPT/HCPCS: 80048; 80076; 81001; 82150; 83605; 83690; 84703; 85025; 96374; 96375; 96376; 99282; J1170; J2405

== ENCOUNTER → 2022-10-16 | Outpatient (REF) | payer OTHER | LOC: M LAB REF 17:47 | PROVIDERS: ATTEND Physician Assistant Medical | DX: R51.9 Headache, unspecified (principal) ==

== ENCOUNTER 2023-06-29 17:30 | Emergency (ER) | payer OTHER ==
[~2023-06-29] VITALS: Ht 165.1 cm; Wt 69.7 kg
[2023-06-29] MEDS ORDERED: GABA-282 (17:38)
[2023-06-29] MEDS ORDERED: TIZA2TA (17:38)
[2023-06-29] MEDS ORDERED: AMOX875T (17:38)
[2023-06-29] MEDS ORDERED: ALPR0.5T3 (17:38)
[2023-06-29] MEDS: KETOROLAC 30 MG/ML 1ML VIAL IV ONE (19:58)
[2023-06-29 20:51] LABS: BASO % 0.5 % (0.0-1.0); EOS # 0.4 10^3/uL (0.0-0.5); EOS % 6.6 % (0.0-3.0); HEMATOCRIT 34.3 % (36.0-47.0); LYMPH % 51.2 % (24.0-44.0); MEAN CORPUSCULAR HEMOGLOBIN 28.1 pg (27.0-33.0); MEAN CORPUSCULAR HGB CONC 32.1 g/dl (32.0-36.5); MEAN CORPUSCULAR VOLUME 87.7 fl (80.0-96.0); MONO # 0.4 10^3/uL (0.0-0.8); MONO % 6.5 % (2.0-8.0); NEUTROPHILS # 2.1 10^3/uL (1.5-8.5); PLATELET COUNT, AUTOMATED 204 10^3/uL (150-450); RED BLOOD COUNT 3.91 10^6/uL (4.00-5.40); WHITE BLOOD COUNT 5.9 10^3/uL (4.0-10.0)
[2023-06-29 21:06] LABS: ERYTHROCYTE SEDIMENTATION RATE 3 mm/hr (0-20)
[2023-06-29 21:23] VITALS: BP 118/72; TEMP 97.4; O2SAT 100
== END 2023-06-29 21:27 | disposition home or self-care (01) ==
LOC: M ED 17:30
DX: H92.03 Otalgia, bilateral (principal); M79.7 Fibromyalgia; Z88.5 Allergy status to narcotic agent; Z88.6 Allergy status to analgesic agent; Z91.013 Allergy to seafood; Z79.52 Long term (current) use of systemic steroids; Z79.891 Long term (current) use of opiate analgesic; Z79.899 Other long term (current) drug therapy
CPT/HCPCS: 80047; 84702; 85025; 85652; 86140; 96374; 99284; J1885

== ENCOUNTER 2023-08-10 09:27 | Emergency (ER) | payer OTHER ==
[~2023-08-10] VITALS: Ht 162.6 cm; Wt 69.5 kg
[~2023-08-10 09:27] MED LIST changes: +ALPR0.5T3; +AMOX875T; +GABA-282; +TIZA2TA
[2023-08-10 12:26] LABS: RSV AMPLIFICATION NEGATIVE (NEGATIVE)
[2023-08-10 13:12] LABS: BASO % 0.5 % (0.0-1.0); EOS # 0.2 10^3/uL (0.0-0.5); EOS % 2.9 % (0.0-3.0); HEMATOCRIT 38.6 % (36.0-47.0); HEMOGLOBIN 12.5 g/dl (12.0-15.5); LYMPH # 2.6 10^3/uL (1.5-5.0); LYMPH % 44.3 % (24.0-44.0); MEAN CORPUSCULAR HEMOGLOBIN 28.4 pg (27.0-33.0); MEAN CORPUSCULAR HGB CONC 32.4 g/dl (32.0-36.5); MEAN CORPUSCULAR VOLUME 87.7 fl (80.0-96.0); MONO # 0.4 10^3/uL (0.0-0.8); MONO % 6.2 % (2.0-8.0); NEUTROPHILS # 2.7 10^3/uL (1.5-8.5); NEUTROPHILS % 45.8 % (36.0-66.0); PLATELET COUNT, AUTOMATED 267 10^3/uL (150-450); WHITE BLOOD COUNT 5.9 10^3/uL (4.0-10.0)
[2023-08-10 13:23] LABS: ERYTHROCYTE SEDIMENTATION RATE 9 mm/hr (0-20)
[2023-08-10] MEDS ORDERED: ACETAMINOPHEN 325 MG TAB As Ordered ONE (13:24)
[2023-08-10] MEDS: ACETAMINOPHEN TAB 650MG DOSE (2X325MG) PO ONE (13:30)
[2023-08-10] MEDS: ALPRAZolam 0.5 MG TAB PO ONE (13:34)
[2023-08-10 13:35] LABS: C REACTIVE PROTEIN QUANTITATIV < 0.40 MG/DL (<1.0)
[2023-08-10 13:37] LABS: BLOOD UREA NITROGEN 7 MG/DL (9-23); CALCIUM LEVEL 8.5 MG/DL (8.5-10.1); CARBON DIOXIDE LEVEL 28 MMOL/L (20-31); CHLORIDE LEVEL 108 MMOL/L (98-107); CREATININE FOR GFR 0.69 MG/DL (0.55-1.30); GLOMERULAR FILTRATION RATE > 60.0 (>60); GLUCOSE, FASTING 86 MG/DL (60-100); SODIUM LEVEL 141 MMOL/L (136-145)
[2023-08-10 15:29] VITALS: BP 127/68; TEMP 98.6; O2SAT 98
== END 2023-08-10 15:34 | disposition home or self-care (01) ==
LOC: M ED 11:24
DX: U07.1 COVID-19 (principal); H65.23 Chronic serous otitis media, bilateral; M79.7 Fibromyalgia; J45.909 Unspecified asthma, uncomplicated; Z79.52 Long term (current) use of systemic steroids; Z79.891 Long term (current) use of opiate analgesic; Z79.899 Other long term (current) drug therapy; Z87.891 Personal history of nicotine dependence; Z88.6 Allergy status to analgesic agent; Z88.5 Allergy status to narcotic agent; Z91.013 Allergy to seafood

== ENCOUNTER → 2023-08-19 | Outpatient (REF) | LOC: M PLAIMG 12:42 | PROVIDERS: ATTEND Nurse Practitioner Family | DX: M54.50 Low back pain, unspecified (principal); M41.9 Scoliosis, unspecified ==

== ENCOUNTER 2023-12-07 13:06 | Emergency (ER) | payer OTHER ==
[~2023-12-07] VITALS: Ht 165.1 cm; Wt 77.6 kg
[~2023-12-07 13:06] MED LIST changes: +FLUO-365 PO; -FLUO20CA22 PO
[2023-12-07] MEDS ORDERED: ACET1TAB55 PO (13:15)
[2023-12-07] MEDS ORDERED: KETO10TAB PO (13:15)
[2023-12-07] MEDS ORDERED: AMOX875T2 (13:15)
[2023-12-07] MEDS ORDERED: DEPO150I12 IM (13:17)
[2023-12-07 13:51] LABS: BASO % 0.5 % (0.0-1.0); EOS # 0.1 10^3/uL (0.0-0.5); EOS % 1.3 % (0.0-3.0); HEMATOCRIT 35.8 % (36.0-47.0); HEMOGLOBIN 11.5 g/dl (12.0-15.5); LYMPH # 1.6 10^3/uL (1.5-5.0); LYMPH % 28.3 % (24.0-44.0); MEAN CORPUSCULAR HEMOGLOBIN 28.7 pg (27.0-33.0); MEAN CORPUSCULAR HGB CONC 32.1 g/dl (32.0-36.5); MEAN CORPUSCULAR VOLUME 89.3 fl (80.0-96.0); MONO # 0.3 10^3/uL (0.0-0.8); MONO % 5.9 % (2.0-8.0); NEUTROPHILS # 3.5 10^3/uL (1.5-8.5); NEUTROPHILS % 63.6 % (36.0-66.0); PLATELET COUNT, AUTOMATED 254 10^3/uL (150-450); RED BLOOD COUNT 4.01 10^6/uL (4.00-5.40); WHITE BLOOD COUNT 5.6 10^3/uL (4.0-10.0)
[2023-12-07 14:21] LABS: BLOOD UREA NITROGEN 7 MG/DL (9-23); CALCIUM LEVEL 9.5 MG/DL (8.5-10.1); CARBON DIOXIDE LEVEL 22 MMOL/L (20-31); CHLORIDE LEVEL 110 MMOL/L (98-107); CREATININE FOR GFR 0.63 MG/DL (0.55-1.30); GLOMERULAR FILTRATION RATE > 60.0 (>60); GLUCOSE, FASTING 117 MG/DL (60-100); HCG, SERUM QUALITATIVE NEGATIVE (NEGATIVE); POTASSIUM SERUM 4.3 MMOL/L (3.5-5.1); SODIUM LEVEL 140 MMOL/L (136-145)
[2023-12-07] MEDS: KETOROLAC 30 MG/ML 1ML VIAL IM ONE (16:48)
[2023-12-07] MEDS: MORPHINE 2 MG/ML 1ML VIAL IV ONE (17:25)
[2023-12-07] MEDS: METHOCARBAMOL 1,000 MG/10 ML VIAL IV ONE (17:25)
[2023-12-07] MEDS: NS 1,000 ML IV ONE (17:25)
[2023-12-07] MEDS ORDERED: HYDROmorphone 2 MG TAB PO ONE (18:10)
[2023-12-07 18:30] LABS: INR 1.01; PARTIAL THROMBOPLASTIN TIME 27.1 SECONDS (24.8-34.2)
[2023-12-07] MEDS: HYDROmorphone 2 MG TAB PO ONE (18:30)
[2023-12-07] MEDS: MORPHINE 4 MG/ML 1ML VIAL IV ONE (20:16)
[2023-12-07] MEDS ORDERED: PROV10TA PO (21:23)
[2023-12-07 21:31] VITALS: BP 138/85; TEMP 98.7; O2SAT 97
== END 2023-12-07 21:43 | disposition home or self-care (01) ==
LOC: M ED 13:06
DX: N80.9 Endometriosis, unspecified (principal); N94.6 Dysmenorrhea, unspecified; N93.9 Abnormal uterine and vaginal bleeding, unspecified; M79.7 Fibromyalgia; F41.9 Anxiety disorder, unspecified; F32.A Depression, unspecified; F43.10 Post-traumatic stress disorder, unspecified; F17.210 Nicotine dependence, cigarettes, uncomplicated; F12.10 Cannabis abuse, uncomplicated; Z88.1 Allergy status to other antibiotic agents; Z88.8 Allergy status to other drugs, medicaments and biological substances; Z91.013 Allergy to seafood; Z79.1 Long term (current) use of non-steroidal anti-inflammatories (NSAID); Z79.51 Long term (current) use of inhaled steroids; Z79.2 Long term (current) use of antibiotics; Z79.899 Other long term (current) drug therapy
CPT/HCPCS: 76830; 76856; 80048; 81001; 84703; 85025; 85610; 85730; 86850; 86900; 86901; 93976; 96361; 96372; 96374; 96376; 99284; J1885; J2800